=== PATIENT | male | born 1960 | race Asian ===

== ENCOUNTER 2018-12-23 10:04 | Inpatient (IN) | payer BC ==
[~2018-12-23] VITALS: Ht 182.9 cm; Wt 94.8 kg
--- NOTE | 2018-12-23 10:21 | NUR ---
PT BIB SELF C/O R LOWER ABDOMINAL PAIN, PT IS AAOX4, NOT IN RESPIRATORY DISTRESS, HOOKED TO MONITOR, KEPT RESTED AND COMFORTABLE, WILL CONTINUE TO MONITOR.
--- NOTE | 2018-12-23 10:33 | NUR ---
PT SEEN AND EXAMINED BY .
--- NOTE | 2018-12-23 10:35 | NUR ---
URINE SPECIMEN COLLECTED AND SENT TO LAB.
[2018-12-23] MEDS ORDERED: ONDANSETRON HCL/PF 4 MG/2 ML VIAL ONE (10:40)
[2018-12-23] MEDS ORDERED: MORPHINE SULFATE INJ 4 MG/ML DISP.SYRIN ONE ×2 (10:40→12:01)
--- NOTE | 2018-12-23 10:40 | NUR ---
IV LINE ESTABLISHED, BLOOD DRAWNED AND SENT TO LAB.
[2018-12-23 10:43] LABS: BASOPHILS % (AUTO) 0.4 % (0.0-2.0); EOSINOPHILS % (AUTO) 0.5 % (0.0-6.0); HEMATOCRIT 44 % (39-51); HEMOGLOBIN 15.2 g/dL (13.5-17.5); LYMPHOCYTES % (AUTO) 10.6 % (20.0-44.0); MEAN CORPUSCULAR HGB CONC 34 g/dl (31.0-36.0); MEAN CORPUSCULAR VOLUME 92 fL (80-96); MONOCYTES # (AUTO) 0.7 /CMM (0.1-1.30); MONOCYTES % (AUTO) 7.7 % (2.0-12.0); NEUTROPHILS # (AUTO) 7.5 /CMM (1.8-8.9); NEUTROPHILS % (AUTO) 80.8 % (43.0-81.0); PLATELET COUNT (AUTO) 211 /CMM (150-450); WHITE BLOOD COUNT (AUTO) 9.3 K/uL (4.3-11.0)
[2018-12-23 10:44] LABS: APPEARANCE,URINE Clear (CLEAR); BILIRUBIN,URINE Negative (NEGATIVE); BLOOD, URINE Trace-intact Ery/uL (NEGATIVE); COLOR,URINE Yellow (YELLOW); KETONES,URINE Negative (NEGATIVE); LEUKOCYTE ESTERASE ,URINE Negative (NEGATIVE); NITRITE, URINE Negative (NEGATIVE); PROTEIN,URINE Negative (NEGATIVE); UGLUCOSE Negative (NEGATIVE)
--- NOTE | 2018-12-23 10:48 | NUR ---
PT IS WHEELED TO CT SCAN VIA [facility].
[2018-12-23 10:54] LABS: BACTERIA,URINE Rare /HPF (None Seen); RBC,URINE 0-2 /HPF (0-2); SQUAMOUS EPITHELIAL CELL,UR None Seen /HPF (None Seen); WBC,URINE 0-2 /HPF (0-3)
[2018-12-23 10:56] LABS: CALCIUM, SERUM 8.8 mg/dL (8.5-10.1); CREATININE 1.1 mg/dL (0.6-1.3); POTASSIUM 3.8 mmol/L (3.5-5.1)
[2018-12-23] MEDS ORDERED: MORPHINE SULFATE INJ 2 MG/ML DISP.SYRIN IV ONE ×2 (11:00→12:00)
[2018-12-23 11:02] LABS: ALBUMIN 3.8 g/dL (3.4-5.0); BILIRUBIN,DIRECT 0.2 mg/dL (0.0-0.2); BILIRUBIN,TOTAL 0.6 mg/dL (0.2-1.0); TOTAL PROTEIN, SERUM 7.7 g/dL (6.4-8.2)
[2018-12-23] MEDS ORDERED: PIPERACILLIN /TAZOBACTAM 3.375 G in IV D5W 50 ML IV ONE (12:00)
[2018-12-23] MEDS ORDERED: HYDR-4384 PO (12:04)
[2018-12-23] MEDS ORDERED: OMEP20TA5 PO (12:04)
--- NOTE | 2018-12-23 12:19 | NUR ---
EPIC AGRONOMY TEACHER PAGED
--- NOTE | 2018-12-23 12:26 | NUR ---
[facility]
--- NOTE | 2018-12-23 13:00 | NUR ---
ASHLEY VINCENT DNP AT BEDSIDE FOR EVAL.
--- NOTE | 2018-12-23 13:08 | NUR ---
REPORT GIVEN TO RADHA SHETTY FOR CHRISTA.
[2018-12-23] MEDS ORDERED: IV NS 0.9% 1,000 ML IV PRN (13:37)
[2018-12-23 14:00] VITALS: BP 151/101
[2018-12-23] MEDS ORDERED: MAG HYDROX/AL HYDROX/SIMETH 30 ML UDC PO PRN ×2 (14:00→14:15)
[2018-12-23] MEDS ORDERED: FAMOTIDINE/PF INJ 20 MG/2 ML VIAL IV SCH (14:00)
[2018-12-23] MEDS ORDERED: ACETAMINOPHEN 325 MG TABLET PO PRN ×2 (14:00→14:15)
[2018-12-23] MEDS ORDERED: MORPHINE SULFATE INJ 2 MG/ML DISP.SYRIN IV PRN ×2 (14:00→14:15)
[2018-12-23] MEDS ORDERED: ONDANSETRON HCL/PF 4 MG/2 ML VIAL IVP PRN (14:00)
--- NOTE | 2018-12-23 14:00 | NUR ---
PATIENT TRANSFERRED FOM ER. PATIENT AWAKE A/O X4, ON ROOM AIR SATURATING 97%. vs : 149/101 HR 95. PATIENT COMPLAINING OF ABDOMINAL PAIN 02/19. PATIENT MEDICATED WITH PRN PAIN MEDICATION. PATIENT ADMITTED TO [facility] WITH DIAGNOSIS ACUTE CHOLECYSTITIS. NPO STATUS. IV LINE INTACT AND PATENT. PATIENT ORIENTED TO ROOM AND UNIT. SAFETY PRECAUTIONS OBSERVED AND CALL LIGHT WITHIN REACH. FAMILY AT BEDSIDE. WILL CONTINUE TO MONITOR
[2018-12-23] MEDS: IV NS 0.9% 1,000 ML IV PRN (14:45)
--- NOTE | 2018-12-23 15:00 | NUR ---
PATIENT STATED MORPHINE DOES NOT HELP WITH PAIN. PAGED BENJAMIN TO NOTIFY. RECEIVED A NEW ORDER: D/C MORPHINE DILAUDID 1 MG Q4HR. ORDER PLACED.
[2018-12-23 16:00] VITALS: BP 156/78
[2018-12-23] MEDS: HYDROMORPHONE 1 MG/1 ML DISP.SYRIN IV PRN ×3 (16:44→23:48)
[2018-12-23] MEDS ORDERED: PIPERACILLIN /TAZOBACTAM 3.375 G in IV D5W 50 ML IV SCH ×4 (18:00)
--- NOTE | 2018-12-23 18:39 | NUR ---
PATIENT OUT OF UNIT FOR HIDA SCAN.
--- NOTE | 2018-12-23 19:15 | NUR ---
BEDSIDE REPORT RECIEVED FROM SENA GARCIA. PATIENT CURRENTLY NOT IN ROOM HE IS DOWN FOR HIDA SCAN. PATIENT ADMITTED TO [facility] WITH DIAGNOSIS ACUTE CHOLECYSTITIS. WILL AWAIT PATISNTS RETURN TO RESUME CARE.
[2018-12-23] MEDS: ONDANSETRON HCL/PF 4 MG/2 ML VIAL IVP PRN (20:49)
[2018-12-23] MEDS: PIPERACILLIN /TAZOBACTAM 3.375 G in IV D5W 100 ML IV SCH (20:57)
--- NOTE | 2018-12-23 21:00 | NUR ---
AB JARVIS IN TO SEE PATIENT. SHE IS RECOMMENDING SURGERY AND PATIENT IS IN AGREEMENT. WILL AWAIT FURTHER ORDERS.
--- NOTE | 2018-12-23 22:05 | NUR ---
AB JARVIS CALLED UNIT AND NEW ORDERS RECIEVED FOR PLANNED SURGERY FOR TOMORROW.
[2018-12-24] VITALS (9 sets, daily range): BP systolic 121–155; BP diastolic 70–89
[2018-12-24] MEDS ORDERED: METOCLOPRAMIDE HCL 10 MG/2 ML VIAL IV PRN
--- NOTE | 2018-12-24 02:12 | NUR ---
PATIENT SCHEDULED FOR SURGERY AT 0730 THIS AM PER KELLER MACHINE OPERATOR. Addendum: 12/24/18 at 0215 by MARINA WILCOX RN ADDITIONAL LABS AND EKG ORDERED PER PREOP CHECKLIST/ PREOP PROTOCOL.
[2018-12-24] MEDS: ONDANSETRON HCL/PF 4 MG/2 ML VIAL IVP PRN (03:20)
[2018-12-24] MEDS: IV NS 0.9% 1,000 ML IV PRN (03:20)
[2018-12-24] MEDS: HYDROMORPHONE 1 MG/1 ML DISP.SYRIN IV PRN ×2 (03:21→05:57)
[2018-12-24] MEDS: PIPERACILLIN /TAZOBACTAM 3.375 G in IV D5W 100 ML IV SCH ×3 (04:32→20:20)
[2018-12-24 06:30] LABS: BASOPHILS % (AUTO) 0.1 % (0.0-2.0); EOSINOPHILS % (AUTO) 0.2 % (0.0-6.0); HEMATOCRIT 43 % (39-51); HEMOGLOBIN 14.6 g/dL (13.5-17.5); LYMPHOCYTES # (AUTO) 1.4 /CMM (0.8-4.8); LYMPHOCYTES % (AUTO) 11.4 % (20.0-44.0); MEAN CORPUSCULAR HGB CONC 34 g/dl (31.0-36.0); MEAN CORPUSCULAR VOLUME 92 fL (80-96); MONOCYTES # (AUTO) 1.5 /CMM (0.1-1.30); NEUTROPHILS # (AUTO) 9.5 /CMM (1.8-8.9); NEUTROPHILS % (AUTO) 76.3 % (43.0-81.0); PLATELET COUNT (AUTO) 177 /CMM (150-450); RED BLOOD CELL COUNT(AUTO) 4.71 MIL/uL (4.5-6.0); WHITE BLOOD COUNT (AUTO) 12.5 K/uL (4.3-11.0)
--- NOTE | 2018-12-24 06:30 | NUR ---
preop check list performed. patient vs are stable. OR nurse informed of patients status. patient in no apparent distress. bed down locked srx2. Will cont to monitor.
[2018-12-24 06:45] LABS: POTASSIUM 4.4 mmol/L (3.5-5.1)
[2018-12-24 06:46] LABS: ALBUMIN 3.6 g/dL (3.4-5.0); BILIRUBIN,DIRECT 0.4 mg/dL (0.0-0.2); CALCIUM, SERUM 8.5 mg/dL (8.5-10.1); CREATININE 0.9 mg/dL (0.6-1.3)
[2018-12-24] MEDS ORDERED: ANESTHESIA TRAY IN PYXIS 1 EA TRAY MC ONE (06:51)
[2018-12-24] MEDS ORDERED: LIDOCAINE HCL/MPF 1% 30 ML VIAL IJ ONE (06:52)
[2018-12-24] MEDS ORDERED: BUPIVACAINE MPF 0.5% W/EPI INJ 30 ML VIAL ONE (06:52)
--- NOTE | 2018-12-24 07:05 | NUR ---
manufacturing test technician milo came up to unit to waste picker the patient. patient taken down to or in [facility], [place]. in no apparent distress.
--- NOTE | 2018-12-24 07:10 | NUR ---
report given to cecilia rn for cont of care.
--- NOTE | 2018-12-24 07:11 | NUR ---
MS/RN NOTE RECEIVED REPORT FROM SINK CUTTER BUT THE PATIENT WAS NOT IN THE ROOM BECAUSE HE WAS ALREADY TAKE TO OR.
[2018-12-24] MEDS ORDERED: HYDROMORPHONE INJ 2 MG/ML DISP.SYRIN ONE (07:31)
[2018-12-24] MEDS ORDERED: FENTANYL PF 100MCG/2ML AMPUL ONE (07:31)
[2018-12-24] MEDS ORDERED: ROCURONIUM BROMIDE 50 MG/5 ML ONE (07:32)
[2018-12-24] MEDS ORDERED: MIDAZOLAM HCL 2 MG/2ML VIAL ONE (07:32)
[2018-12-24] MEDS: FAMOTIDINE/PF INJ 20 MG/2 ML VIAL IV SCH (09:00)
--- NOTE | 2018-12-24 09:01 | NUR ---
MS/RN NOTE PEPCID 20 MG IV NOT ADMINISTERED DUE TO PATIENT IN OR.
[2018-12-24] MEDS ORDERED: CELLULOSE,OXIDIZED 1 EA PACK MC ONE (09:22)
--- NOTE | 2018-12-24 10:58 | NUR ---
MS/RN NOTE THE PATIENT IS RECEIVED FROM OR ON A GURNEY. PATIENT IS TRANSFERRED TO BED. PATIENT ALERT AND ORIENTED X3. IN ROOM AIR AND SATURATION IS AT 97%. RESPIRATION REGULAR AND UNLABORED. COMPLAINS OF ABDOMINAL PAIN 08/20. ABDOMEN DISTENDED. NOTED 3 LAPAROSCOPIC HOLES COVERED WITH MEPILEX 2X2 DRESSING AND A ERNESTO DRAIN ON THE RIGHT ABDOMINAL SITE WITH 5 ML OF SANGUINOUS OUTPUT. NO DISCHARGES AT THE SITES NOTED. LAC G 18 PATENT AND SALINE LOCKED. BED LOW AND LOCKED. SIDE RAILS UP X3. APPLIED SCD. PROVIDED AND INSTRUCTED HOW TO USE IS. THE PATIENT VERBALIZED UNDERSTANDING. WILL CONTNUE Addendum: 12/24/18 at 1123 by MAISHA VINSON RN WILL CONTINUE TO MONITOR.
[2018-12-24] MEDS: IV LR 1000 ML 1,000 ML IV PRN (11:26)
--- NOTE | 2018-12-24 14:00 | NUR ---
MS/RN NOTE THE PATIENT IS SEEN BY DR GUNDERSON WITH NEW ORDER FOR CLEAR LIQUID DIET STARTING 12/24/18. READ BACK, VERIFIED. NOTED AND CARRIED OUT.
--- NOTE | 2018-12-24 18:50 | NUR ---
MS/RN NOTE THE PATIENT IS ALERT AND ORIENTED X4. IN ROOM AIR AND SATURATION IS AT 97%. DENIES SOB. RESPIRATION REGULAR AND UNLABORED. DENIES PAIN. THE PATIENT IN NO APPARENT DISTRESS. ABDOMINAL LAPAROSCOPIC 3 HALLS COVERED WITH DRESSING AND NO DISCHARGE NOTED. ERNESTO DRAIN IN PLACE AND DRAINED 20 ML OF SEROUS DRAINAGE WITH NO FOUL ODOR. LAC G 18 PATENT AND LR INFUSING AT 150ML/HR AND NO S/S INFILTRATION NOTED. DURING THE SHIFT THE PATIENT IS ENCOURAGE TO USE IS. PATIENT ABLE TO VOID FREELY. NOTED CLEAR AND YELLOW COLOR URINE. NO BLADDER DISTENSION NOTED. BED LOW AND LOCKED. SIDE RAILS UP X3. CALL LIGHT WITHIN REACH. WILL ENDORSE TO INSPECTOR MACHINE PARTS.
--- NOTE | 2018-12-24 18:53 | NUR ---
MS/RN NOTE THE PATIENT IS SEEN BY AB MEDINA WITH NEW ORDER FOR FULL LIQUID DIET. READBACK, VERIFIED. NOTED AND CARRIED OUT.
--- NOTE | 2018-12-24 19:48 | NUR ---
MS/RN OPENING NOTES RECEIVED PATIENT IN BED, AWAKE, ALERT X3, ABLE TO VERBALIZE NEEDS, ABLE TO SIT AND STAND WITH SUPERVISION, FAMILY AT BEDSIDE. RESPIRATIONS EVEN AND UNLABORED. REPORTED PAIN TOLERABLE, ABLE TO USE URINAL AND FAMILY AT BED SIDE, DISCUSSED PLAN OF CARE AND USE OF INCENTIVE SPIROMETER ALSO MONITOR INPUT AND OUT PUT. WILL MONITOR.
--- NOTE | 2018-12-24 20:10 | NUR ---
MS/RN NOTES PATIENT REQUESTED FOR MEDICATION FOR HEADACHE. FAMILY AT BEDSIDE, AWAKE, ALERT X3,
--- NOTE | 2018-12-24 20:56 | NUR ---
MS/RN NOTES PATIENT ABLE TO STAND UP AND SIT AND DO SOME ACTIVITIES BUT REPORTED MODERATE PAIN THAT REQUIRE SOME PAIN RELIEVER. WILL MONITOR.
[2018-12-24] MEDS: HYDROCODONE/APAP 10/325MG 1 EA TABLET PO PRN (21:02)
--- NOTE | 2018-12-24 21:08 | NUR ---
MS/RN NOTES PATIENT REPORTED PAIN 7/10 IN MID ABDOMEN AFTER TRYING TO STAND UP , AND SOME ACTIVITY. NORCO 10-325 MG PO GIVEN WILL MONITOR RELIEF.
[2018-12-25] MEDS: PIPERACILLIN /TAZOBACTAM 3.375 G in IV D5W 100 ML IV SCH ×3 (04:31→20:01)
[2018-12-25 06:39] LABS: CALCIUM, SERUM 8.5 mg/dL (8.5-10.1); CREATININE 1.1 mg/dL (0.6-1.3); MAGNESIUM 2.4 mg/dL (1.8-2.4); PHOSPHORUS 2.4 mg/dL (2.5-4.9); POTASSIUM 3.7 mmol/L (3.5-5.1)
[2018-12-25 06:40] LABS: BASOPHILS % (AUTO) 0.1 % (0.0-2.0); EOSINOPHILS % (AUTO) 0.2 % (0.0-6.0); HEMATOCRIT 42 % (39-51); HEMOGLOBIN 14.3 g/dL (13.5-17.5); LYMPHOCYTES # (AUTO) 1.8 /CMM (0.8-4.8); LYMPHOCYTES % (AUTO) 18.8 % (20.0-44.0); MEAN CORPUSCULAR HGB CONC 34 g/dl (31.0-36.0); MEAN CORPUSCULAR VOLUME 92 fL (80-96); MONOCYTES % (AUTO) 10.4 % (2.0-12.0); NEUTROPHILS % (AUTO) 70.5 % (43.0-81.0); PLATELET COUNT (AUTO) 188 /CMM (150-450); RED BLOOD CELL COUNT(AUTO) 4.53 MIL/uL (4.5-6.0); WHITE BLOOD COUNT (AUTO) 9.9 K/uL (4.3-11.0)
--- NOTE | 2018-12-25 06:53 | NUR ---
314-2MS/RN NOTES PATIETN ABLE TO SLEEP DURING THE NIGHT. ABLE TO ASK FOR ASSISTANCE AND USES URINAL,IV FLUIDS ON LEFT ARM WILL MONITOR. BED LOCKED, CALL LIGHTS WITH IN REACH, WILL ENDOTSR TO AM RN .
[2018-12-25 08:00] VITALS: BP 128/86
--- NOTE | 2018-12-25 08:00 | NUR ---
M/S RN NOTES PATIENT AWAKE IN BED, ALERT AND ORIENTED X4, NO RESPIRATORY DISTRESS, NO C/O PAIN AT THIS TIME. IV OF LR INFUSING AT 150ML/HR, ON THE LAC #18G, INTACT AND PATENT, NO REDNESS, NO INFILTRATION NOTED. PATIENT'S DRESSING DRY AND INTACT. ERNESTO DRAIN IN PLACE AND WITH SEROUS DRAINAGE. PATIENT'S NEEDS ATTENDED. BED ON LOWEST LOCKED POSITION, CALL LIGHT WITHIN REACH. WILL CONTINUE TO MONITOR.
[2018-12-25] MEDS: FAMOTIDINE/PF INJ 20 MG/2 ML VIAL IV SCH (08:43)
[2018-12-25] MEDS: IV LR 1000 ML 1,000 ML IV PRN (10:33)
[2018-12-25] MEDS ORDERED: K PHOS NEUTRAL 250 MG TABLET PO ONE (11:00)
[2018-12-25 15:45] VITALS: BP 129/82
--- NOTE | 2018-12-25 18:55 | NUR ---
M/S RN NOTES PATIENT AWAKE IN BED WITH FAMILY AT BEDSIDE. NO RESPIRATORY DISTRESS NOTED, NO C/O PAIN AT THIS TIME. PATIENT'S NEEDS ATTENDED. IV ACCESS SITE INTACT AND PATENT RUNNING LR AT 150ML/HR. BED ON LOWEST LOCKED POSITION, CALL LIGHT WITHIN REACH. WILL ENDORSE TO ONCOMING NURSE.
--- NOTE | 2018-12-25 19:52 | NUR ---
MS/RN OPENING NOTES RECEIVED PATIENT IN BED AWAKE, ALERT X4, ABLE TO VERBALIZE NEEDS. NO PAIN REPORTED, BELONGINGS, FLUIDS AND CALL LIGHTS WITHIN REACH, DISCUSSED PLAN OF CARE, REPORTED THAT DISCHARGE PLANNING BARRY PER MD. FAMILY AT BED SIDE. PATIENT ABLE TO SIT IN CHAIR AND AMBULATE WITH SUPERVISION WITH WALKER, ERNESTO DRAIN WITH MINIMAL OUTPUT. WILL CONTINUE TO MONITOR. BED LOCKED. RECEIVED ENDORSEMENT FROM AM RN FOR CHRISTA.
[2018-12-25 20:00] VITALS: BP 137/74
[2018-12-25] MEDS: HYDROCODONE/APAP 10/325MG 1 EA TABLET PO PRN (20:29)
--- NOTE | 2018-12-25 20:32 | NUR ---
MS/RN NOTES PATIENT REPORTED PAIN OF 7/10 AFTER WALKING FEW STEPS AND STANDING UP, REQUESTED FOR SOME PAIN MEDICATION NORCO 10-325 MG PO GIVEN, WILL MONITOR ABLE TO TOLERATE MEDICATION.
--- NOTE | 2018-12-25 22:52 | NUR ---
MS/RN NOTES PATIENT ABLE TO AMBULATE IN THE HALLWAY WITHOUT DIFFICULTY BEFORE GOING TO BED,
[2018-12-26] MEDS: IV LR 1000 ML 1,000 ML IV PRN (04:12)
[2018-12-26] MEDS: PIPERACILLIN /TAZOBACTAM 3.375 G in IV D5W 100 ML IV SCH ×2 (04:12→12:11)
--- NOTE | 2018-12-26 06:40 | NUR ---
314-2 MS/RN NOTES PATIENT IN BED ABLE TO SLEEP FEW HOURS DURING THE NIGHT, PAIN MEDICATION GIVEN PER PATIENT REQUEST. ALERT, ORIENTED X3. ABLE TO AMBULATE AND TOLERATE FOOD. ERNESTO DRAIN WITH MINIMAL OUTPUT of 30ml . BED LOCKED, CALL LIGHTS WITHIN REACH.
[2018-12-26 07:14] LABS: BASOPHILS % (AUTO) 0.4 % (0.0-2.0); EOSINOPHILS % (AUTO) 0.9 % (0.0-6.0); HEMATOCRIT 42 % (39-51); HEMOGLOBIN 14.1 g/dL (13.5-17.5); LYMPHOCYTES # (AUTO) 2.8 /CMM (0.8-4.8); LYMPHOCYTES % (AUTO) 32.2 % (20.0-44.0); MEAN CORPUSCULAR HGB CONC 34 g/dl (31.0-36.0); MEAN CORPUSCULAR VOLUME 92 fL (80-96); MONOCYTES # (AUTO) 0.8 /CMM (0.1-1.30); MONOCYTES % (AUTO) 8.9 % (2.0-12.0); NEUTROPHILS % (AUTO) 57.6 % (43.0-81.0); PLATELET COUNT (AUTO) 201 /CMM (150-450); RED BLOOD CELL COUNT(AUTO) 4.51 MIL/uL (4.5-6.0); WHITE BLOOD COUNT (AUTO) 8.6 K/uL (4.3-11.0)
--- NOTE | 2018-12-26 07:42 | NUR ---
MS RN OPENING NOTES RECEIVED PATIENT IN BED ASLEEP, AROUSABLE TO VERBAL AND TACTILE STIMULI. HOB ELEVATED. NO SOB OBSERVED. DENIES ANY C/O PAIN NOR DISCOMFORT. DENIES C/O N/V. LEFT AC #18 INTACT AND PATENT INFUSING LR @ 150ML/HR JASMEET WELL. BED IN LOWEST POSITION. CALL LIGHT WITHIN REACH. BED LOCK. BED SIDERAILS UP X2.
[2018-12-26 08:00] VITALS: BP 142/80
[2018-12-26 08:18] LABS: CALCIUM, SERUM 8.9 mg/dL (8.5-10.1); CREATININE 1.1 mg/dL (0.6-1.3); MAGNESIUM 2.2 mg/dL (1.8-2.4); PHOSPHORUS 3.1 mg/dL (2.5-4.9); POTASSIUM 3.6 mmol/L (3.5-5.1)
[2018-12-26] MEDS: FAMOTIDINE/PF INJ 20 MG/2 ML VIAL IV SCH (08:37)
[2018-12-26] MEDS: HYDROCODONE/APAP 10/325MG 1 EA TABLET PO PRN (10:49)
[2018-12-26 16:00] VITALS: BP 132/84
--- NOTE | 2018-12-26 19:28 | NUR ---
MS RN CLOSING /DISCHARGE NOTES PATIENT ALERT AND AWAKE ORIENTED X4. DENIES ANY C/O PAIN NOR DISCOMFORT. NO S/S OF ACUTE DISTRESS. ERNESTO WITH SUTURES INTACT WITH 15 CC SANGUINOUS DRAINED. MID ABD (UPPER, LOWER AND RIGHT SIDE) WITH STABLES INTACT WITHOUT S/S OF INFECTION. DISCHARGE INSTRUCTIONS AND DISCHARGE PACKET GIVEN TO PATIENT. TEACHINGS DONE. PATIENT VERBALIZES UNDERSTANDING. IV ACCESS PERIPHERAL LINE REMOVED WITH CATHETER TIP IN PLACE. ALL BELONGINGS ACCOUNTED FOR. PER PATIENT, DAUGHTER IS ON HER WAY TO RESOURCES REPRESENTATIVE PATIENT. IN NO APPARENT DISTRESS AT THIS TIME. ENDORSED TO ONCOMING SHIFT.
== END 2018-12-26 20:00 | disposition home or self-care (01) | DRG 418 ==
LOC: ER 10:04 → MED 14:20
PROVIDERS: ADMIT Nurse Practitioner Acute Care; ATTEND Nurse Practitioner Acute Care
PROC: 0DNU4ZZ Release Omentum, Percutaneous Endoscopic Approach (ICD-10-PCS; principal; 2018-12-23)
PROC: 0FT44ZZ Resection of Gallbladder, Percutaneous Endoscopic Approach (ICD-10-PCS; principal; 2018-12-23)
PROC: 0DTJ4ZZ Resection of Appendix, Percutaneous Endoscopic Approach (ICD-10-PCS; principal; 2018-12-23)
DX: K80.00 Calculus of gallbladder with acute cholecystitis without obstruction (principal); E44.1 Mild protein-calorie malnutrition; K21.9 Gastro-esophageal reflux disease without esophagitis; F17.200 Nicotine dependence, unspecified, uncomplicated; E66.9 Obesity, unspecified; Z68.28 Body mass index [BMI] 28.0-28.9, adult; K57.50 Diverticulosis of both small and large intestine without perforation or abscess without bleeding; K42.9 Umbilical hernia without obstruction or gangrene; K80.12 Calculus of gallbladder with acute and chronic cholecystitis without obstruction; K82.8 Other specified diseases of gallbladder; K66.0 Peritoneal adhesions (postprocedural) (postinfection)
CPT/HCPCS: 36415; 71045-TC; 76705-TC; 78226; 80048-TC; 80053-TC; 80076-TC; 81000-TC; 82247-TC; 82248-TC; 83690-TC; 83735-TC; 84100-TC; 85025-TC; 85610-TC; 85730-TC; 86850-TC; 87081-TC; 88304-TC; A9537; G0378; J0690; J1100; J1170; J1200; J2250; J2270; J2405; J2543; J2765; J3010; J3490; J7030; J7050; J7060; J7120

== ENCOUNTER 2018-12-29 12:38 | Outpatient (CLI) | payer BC ==
[~2018-12-29 12:38] MED LIST: HYDR-4384 PO; OMEP20TA5 PO
== END 2018-12-29 23:59 | disposition home or self-care (01) ==
LOC: MSC 12:38
PROVIDERS: ATTEND Internal Medicine
DX: K81.0 Acute cholecystitis (principal); K21.9 Gastro-esophageal reflux disease without esophagitis; K57.30 Diverticulosis of large intestine without perforation or abscess without bleeding; Z98.890 Other specified postprocedural states; F17.210 Nicotine dependence, cigarettes, uncomplicated; E44.1 Mild protein-calorie malnutrition; Z68.28 Body mass index [BMI] 28.0-28.9, adult; E66.9 Obesity, unspecified

== ENCOUNTER 2019-01-09 06:36 | Emergency (ER) | payer BC ==
[2019-01-09] MEDS ORDERED: ONDANSETRON HCL/PF 4 MG/2 ML VIAL IVP ONE (07:00)
[2019-01-09] MEDS ORDERED: MORPHINE SULFATE INJ 2 MG/ML DISP.SYRIN IV ONE (07:00)
[2019-01-09] MEDS ORDERED: IV NS 0.9% 1,000 ML BAG IV ONE (07:00)
[2019-01-09] MEDS ORDERED: ONDANSETRON HCL/PF 4 MG/2 ML VIAL ONE (07:19)
[2019-01-09] MEDS ORDERED: MORPHINE SULFATE INJ 4 MG/ML DISP.SYRIN ONE (07:20)
[2019-01-09] MEDS ORDERED: IV NS 0.9% 1,000 ML IV ONE (13:00)
[2019-01-09] MEDS ORDERED: SODIUM POLYSTYRENE SULFONATE 15 G/60 ML BOTTLE PO ONE (15:30)
[2019-01-09] MEDS ORDERED: SODIUM POLYSTYRENE SULFONATE 15 G/60 ML BOTTLE ONE (15:36)
[2019-01-09] MEDS ORDERED: ACETAMINOPHEN ES 500 MG TABLET ONE (17:22)
[2019-01-09] MEDS ORDERED: ACETAMINOPHEN ES 500 MG TABLET PO ONE (20:00)
== END 2019-01-09 21:53 | disposition short-term general hospital (02) ==
DX: K80.50 Calculus of bile duct without cholangitis or cholecystitis without obstruction (principal); R74.0 Nonspecific elevation of levels of transaminase and lactic acid dehydrogenase [LDH]; Z90.49 Acquired absence of other specified parts of digestive tract; Z91.018 Allergy to other foods
CPT/HCPCS: 36415; 74176; 74181; 76705; 80048 ×2; 80076; 81001; 85025; 93005; 96374; 96375; 99285; A6403; J2270; J2405; J7030 ×2

== ENCOUNTER 2019-01-19 12:56 | Outpatient (CLI) | payer BC ==
[2019-01-19 13:14] VITALS: BP 117/78
== END 2019-01-19 23:59 | disposition home or self-care (01) ==
LOC: MSC 12:56
PROVIDERS: ATTEND Internal Medicine
DX: Z09 Encounter for follow-up examination after completed treatment for conditions other than malignant neoplasm (principal); Z90.49 Acquired absence of other specified parts of digestive tract; K21.9 Gastro-esophageal reflux disease without esophagitis; K57.30 Diverticulosis of large intestine without perforation or abscess without bleeding; F17.200 Nicotine dependence, unspecified, uncomplicated; E44.1 Mild protein-calorie malnutrition; Z68.28 Body mass index [BMI] 28.0-28.9, adult; E66.9 Obesity, unspecified